=== PATIENT | male | born 1995 | race Caucasian/White ===

== ENCOUNTER 2022-12-10 10:59 | Emergency (ER) | payer OTHER ==
[~2022-12-10] VITALS: Ht 170.2 cm; Wt 106.1 kg
[2022-12-10 11:18] VITALS: BP 145/78
[2022-12-10] MEDS ORDERED: DIPH-988 PO (12:39)
[2022-12-10] MEDS ORDERED: PRED20TA5 PO (12:39)
--- NOTE | 2022-12-10 12:45 | NUR ---
Patient discharged with v/s stable. Written and verbal after care instructions given. Patient alert, oriented and verbalized understanding of instructions. Ambulatory with steady gait. All questions addressed prior to discharge. ID band removed. Patient advised to follow up with PMD. Rx of Diphenhydramine HCL and Prednisone given. Opportunity to ask questions provided and answered. DISCHARGED BY STRATIGRAPHER GABRIEL. WORK NOTE HANDED TO PATIENT.
--- NOTE | 2022-12-10 12:46 | NUR ---
The patient's care was reviewed and supervised by Mirtha Valenzuela, RN, RN.
== END 2022-12-10 12:45 | disposition home or self-care (01) ==
LOC: MED 10:59
DX: R21 Rash and other nonspecific skin eruption (principal); Z79.899 Other long term (current) drug therapy
CPT/HCPCS: 99283